=== PATIENT | male | born 1995 | race Two or more races ===

== ENCOUNTER 2022-05-11 21:02 | Emergency (ER) | payer MEDICAID | END 2022-05-11 23:07 | disposition left against medical advice (07) | LOC: ER 21:02 | DX: M79.602 Pain in left arm (principal); Z53.21 Procedure and treatment not carried out due to patient leaving prior to being seen by health care provider; V00.138A Other skateboard accident, initial encounter; Y93.21 Activity, ice skating; Y92.89 Other specified places as the place of occurrence of the external cause; Y99.8 Other external cause status ==

== ENCOUNTER 2025-03-21 16:20 | Emergency (ER) | payer MEDICAID ==
[~2025-03-21] VITALS: Ht 172.7 cm; Wt 82.0 kg
--- NOTE | 2025-03-21 16:39 | ED.PDOC ---
History of Present Illness HPI Comments 30M presents to the ER w/ prior MHx of asthma and the c/c of a laceration on the 1st digit of the left hand. Pt reports that he was trying to open a package of steak for his job when he accidentally cut himself leaving a .5cm superficial flap. 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 Denies chills, fever, N/V/D, SOB, CP. Chief Complaint: Laceration Time Seen by MD: 16:30 Reviewed Notes: Nurses Notes, Medications, Allergies Allergies: Coded Allergies: NO KNOWN ALLERGIES (Unverified , 03/21/25) Information Source: Patient Mode of Arrival: Ambulatory Severity: Moderate Timing: Minutes Duration: Since onset, Minutes Prehospital treatment: None Past Medical History PAST MEDICAL HISTORY: Asthma Surgical History: Denies all surgeries Family History Family History: Reviewed,noncontributory to illness, Unknown Social History Smoker: Non-Smoker Alcohol: Denies ETOH Use Drugs: Denies Drug Use Lives In: Home Constitutional: reports: others (superficial flap via laceration by knife); denies: chills, diaphoresis, fatigue, fever, malaise, sweats, weakness EENTM: denies: blurred vision, double vision, ear bleeding, ear discharge, ear drainage, ear pain, ear ringing, eye pain, eye redness, hearing loss, mouth pain, mouth swelling, nasal discharge, nose bleeding, nose congestion, nose pain, photophobia, tearing, throat pain, throat swelling, voice changes, others Respiratory: denies: cough, hemoptysis, orthopnea, SOB at rest, shortness of breath, SOB with excertion, stridor, wheezing, others Cardiovascular: denies: chest pain, dizzy spells, diaphoresis, Dyspnea on exertion, edema, irregular heart beat, left arm pain, lightheadedness, palpita tions, PND, syncope, others Gastrointestinal: denies: abdomen distended, abdominal pain, blood streaked donna wels, constipated, diarrhea, dysphagia, difficulty swallowing, hematemesis, melena, nausea, poor appetite, poor fluid intake, rectal bleeding, rectal pain, vomiting, others Genitourinary: denies: burning, dysuria, flank pain, frequency, hematuria, incontinence, penile discharge, penile sore, pain, testicle pain, testicle swelling, urgency, others Neurological: denies: dizziness, fainting, headache, left sided numbness, left sided weakness, numbness, paresthesia, pre-existing deficit, right sided numbness, right sided weakness, seizure, speech problems, tingling, tremors, weakness, others Musculoskeletal: denies: back pain, gout, joint pain, joint swelling, muscle pain, muscle stiffness, neck pain, others Integumetry: denies: bruises, change in color, change in hair/nails, dryness, laceration, lesions, lumps, rash, wounds, others Allergic/Immunocompromised: denies: Difficulty Healing, Frequent Infections, Hives, Itching, others Hematologic/Lymphatic: denies: anemia, blood clots, easy bleeding, easy bruisin g, swollen glands, others Endocrine: denies: excessive hunger, excessive sweating, excessive thirst, excessive urination, flushing, intolerance to cold, intolerance to heat, unexplained weight gain, unexplained weight loss, others Psychiatric: denies: anxiety, bipolar disorder, depression, hopeless, panic disorder, schizophrenia, sleepless, suicidal, others All Other Systems: Reviewed and Negative Physical Exam General Appearance: No Apparent Distress, Normal HEENT: Normal ENT Inspection, Pharynx Normal, TMs Normal Neck: Full Range of Motion, Non-Tender, Normal, Normal Inspection Respiratory: Chest Non-Tender, Lungs Clear, No Accessory Muscle Use, No Respiratory Distress, Normal Breath Sounds Cardiovascular: No Edema, No JVD, No Murmur, No Gallop, Normal Peripheral Pulses, Regular Rate/Rhythm Breast Exam: Deferred Gastrointestinal: No Organomegaly, Non Tender, No Pulsatile Mass, Normal Bowel Sounds, Soft Genitalia: Deferred Pelvic: Deferred Rectal: Deferred Extremities: No calf tenderness, Normal capillary refill, Normal inspection, Normal range of motion, Non-tender, No pedal edema Musculoskeletal : Apperance: Normal Neurologic: Alert, clay maker II-XII nml as Tested, No Motor Deficits, Normal Affect, Normal Mood, No Sensory Deficits Cerebellar Function: Normal Reflexes: Normal Skin: Dry, Lacerations (left thumb avulsion laceration), Normal Color, Warm Lymphatic: No Adenopathy Was a procedure done? Was a procedure done?: No Differential Dx Considerations may include: Complete avulsion of skin, fracture versus strain X-Ray, Labs, Meds, VS Vital Signs Date Time Temp Pulse Resp B/P (MAP) Pulse Ox O2 Delivery O2 Flow Rate FiO2 03/21/25 16:31 98.8 76 18 132/83 (99) 97 98.8 X-Ray, Labs, Meds, VS Comment Patient seen and examined by me. Patient injured his finger at work has a super visual superficial left thumb avulsion laceration. I explained to the patient that we could probably closes without suture at as it is very superficial. It is normal for a lot of bleeding to occur. Wound was cleaned by myself and closed with Steri-Strips. Patient was also updated on his tetanus. I gave the patient postprocedure instructions and what to look for for the next couple of days.. Time of 1ST Reevaluation: 17:00 Reevaluation 1ST: Unchanged Time of 2ND Reevaluation: 16:46 Reevaluation 2ND: Improved Patient Education/Counseling: Diagnosis, Treatment, Prognosis Family Education/Counseling: No Family Present SEPSIS Sepsis Screen Physician Orders Tetanus [id number] (Boostrix (03/21/25 16:45) Vital Signs Date Time Temp Pulse Resp B/P (MAP) Pulse Ox O2 Delivery O2 Flow Rate FiO2 03/21/25 16:31 98.8 76 18 132/83 (99) 97 98.8 Departure 1 Departure Time of Disposition: 16:46 Impression: Primary Impression: Laceration of left thumb Disposition: 01 HOME / SELF CARE / HOMELESS Condition: Good Additional Instructions: Keep your finger clean and dry As the Steri-Strips starts unravel you may trim it but do not pull off the Steri-Strips as it will cause the wound to open Wound should be healed in the next 7 days Your arm is going to be sore from the tetanus shot that is normal Discharged With: Self Critical Care Note Critical Care Time?: No Stability Stability form required: No I personally scribed for ER ([email or web address]) on 03/21/25 at 16:39. Electronically submitted by Marcio Morales ([email or web address]). ER Mar 21, 2025 16:39 DEWAYNE YATES THERMOSTAT REPAIRER Mar 21, 2025 16:48
[2025-03-21] MEDS: TETANUS-DIPTH-ACEL PERTUSSIS 0.5ML SYR Tdap IM ONE (16:59)
[2025-03-21 17:01] VITALS: BP 124/74; PULSE 68; RESP 16; TEMP 98.1; O2SAT 97
== END 2025-03-21 17:03 | disposition home or self-care (01) ==
LOC: ER 16:20
DX: S61.012A Laceration without foreign body of left thumb without damage to nail, initial encounter (principal); J45.909 Unspecified asthma, uncomplicated; W45.8XXA Other foreign body or object entering through skin, initial encounter; Y93.89 Activity, other specified; Y92.89 Other specified places as the place of occurrence of the external cause; Y99.8 Other external cause status
CPT/HCPCS: 90471; 90715